=== PATIENT | male | born 1990 | race African-American/Black ===

== ENCOUNTER 2018-05-13 18:59 | Emergency (ER) | payer OTHER ==
[2018-05-13] MEDS ORDERED: CIPROFLOXACIN HCL 500 MG TABLET PO ONE (19:36)
[2018-05-13] MEDS ORDERED: CEPHALEXIN 500 MG CAPSULE PO ONE (19:36)
[2018-05-13] MEDS ORDERED: DIPH/PERTUSS(ACELL)/TETANUS VAC/PF 0.5 ML SYR (>=10YO) IM ONE (19:36)
--- NOTE | 2018-05-13 19:36 | ER Document Report ---
HPI - HPI Patient complains to provider of: Puncture wound to foot Onset: This afternoon Onset/Duration: Sudden Quality of pain: Achy Pain Level: 1 Context: Patient states that he was at work and stepped on a nail that went through his work boot through his sock and into his foot. Patient states that he did initially clean the wound. Patient states that his mother encouraged him to come to have it evaluated. 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 IN LAST 30 DAYS: No - HEENT HEENT: Atraumatic, Normocephalic - NECK Neck: Normal Inspection - RESPIRATORY Respiratory: No Respiratory Distress - CARDIOVASCULAR Pulses: Normal: Dorsalis pedis - MUSCULOSKELETAL/EXTREMETIES Musculoskeletal/Extremeties: MAEW, FROM - NEURO Level of Consciousness: Awake, Alert, Appropriate Motor/Sensory: No Motor Deficit - DERM Integumentary: Warm, Dry Notes: Plantar puncture wound to the right foot Course - Re-evaluation Re-evalutation: 05/13/18 20:04 After foot was soaked in chlorhexidine and water solution, puncture wound opening was explored, no obvious foreign body noted. Patient advised of worsening signs of infection that he should return immediately for. Patient denies any concerns about any bony abnormality to the foot and declines x-ray. - Vital Signs Vital signs: Temp Pulse Resp BP Pulse Ox 98.5 F 91 20 154/87 H 100 05/13/18 19:07 05/13/18 19:07 05/13/18 19:07 05/13/18 19:07 05/13/18 19:07 Discharge - Discharge Clinical Impression: Puncture wound of foot Qualifiers: Encounter type: initial encounter Laterality: right Qualified Code(s): S91.331A - Puncture wound without foreign body, right foot, initial encounter Condition: Stable Disposition: HOME, SELF-CARE Instructions: Cephalexin ([facility]), Ciprofloxacin ([facility]), Puncture Wound ([facility]) Additional Instructions: Return immediately for any new or worsening symptoms Followup with your primary care provider, call tomorrow to make a followup appointment Monitor wound daily for any signs of infection, return immediately for any redness, fever, purulent drainage or any concerning symptoms Prescriptions: Cephalexin Monohydrate [Keflex 500 mg Capsule] 500 mg PO Q6H 5 Days capsule Ciprofloxacin HCl [Cipro 500 mg Tablet] 500 mg PO BID #10 tablet Naproxen [Naprosyn 250 Nmg Tablet] 1 tab PO BID #14 tablet Referrals: [facility] ([facility]) [Provider Group] - Follow up as needed
[2018-05-13] MEDS ORDERED: HYDROCODONE/ACETAMINOPHEN 5-325 MG (6 TAB/ER DISP) PO PRN (20:05)
[2018-05-13 20:36] VITALS: BP 143/86
== END 2018-05-13 20:47 | disposition home or self-care (01) ==
LOC: ER 18:59
DX: S91.331A Puncture wound without foreign body, right foot, initial encounter (principal); W45.0XXA Nail entering through skin, initial encounter; Y99.0 Civilian activity done for income or pay
CPT/HCPCS: 90471; 90715; 99283

== ENCOUNTER 2018-05-28 14:23 | Emergency (ER) | payer SELFPAY ==
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
== END 2018-05-28 15:05 | disposition home or self-care (01) ==
LOC: ER 14:23
DX: R20.0 Anesthesia of skin (principal); Z83.3 Family history of diabetes mellitus
CPT/HCPCS: 82962; 99284

== ENCOUNTER 2019-03-01 22:07 | Emergency (ER) | payer SELFPAY ==
[2019-03-01] MEDS ORDERED: DIPHENHYDRAMINE HCL 50 MG/ML VIAL IM ONE (22:43)
[2019-03-01] MEDS ORDERED: HALOPERIDOL LACTATE INJ 5 MG/1 ML VIAL IM ONE (22:43)
[2019-03-01] MEDS ORDERED: LORAZEPAM INJ 2 MG/1 ML VIAL IM ONE (22:44)
--- NOTE | 2019-03-01 23:02 | ER Document Report ---
Addendum entered and electronically signed by SID FERGUSON MD 03/03/19 10:59: Discharge - Discharge Clinical Impression: Suicidal ideation, Unusual change in behavior, Marijuana use, Altered mental status Condition: Stable Disposition: HOME, SELF-CARE Additional Instructions: You have been evaluated by both medical and behavioral health providers while in the emergency department. You have been cleared from both acute medical and p sychiatric services. It is felt your symptoms and presentation may have been due to lack of sleep and use of Cannabis. Sleep and nutrition are two important factors to both medical and mental health. If symptoms persist after getting adequate sleep and abstinence from Cannabis there may be underlying mental health issues. Altered Mental Status An altered mental status is a change in the normal functioning of the brain. This alteration of function can range from minor decreased brain function with some forgetfulness and confusion to complete loss of consciousness and coma. Th ere are many possible causes of an altered mental status and include brain injuries such as trauma or strokes, problems with oxygen supply to the brain, fever and infections of the brain and/or elsewhere in the body, metabolic abnormalities such as low or high blood sugar, overdoses or excessive medication ingestion, and mental and psychiatric illnesses. Sometimes the altered mental status resolves and a definite cause is not determined. If a cause for your altered mental status was found, it has likely been corrected. Your evaluation has not shown any condition that requires that you be admitted to the hospital. It is believed that you are safe to leave and return to your home. If you have a return of your symptoms, you should return for re-evaluation. Follow-Up Plan: You are recommended to get 6-8 hours of sleep a night (everybody varies in amount of sleep needed each night but this is a typical range), eating at least 3 meals a day with snacking in between and refrain from use of Cannabis. You have been provided the outpatient mental health resource sheet for a list of local agencies if you chose outpatient services, as well as [facility] for crisis/talk therapy/linkage to other supports/services. If your symptoms persist or worsen contact your physician immediately, utilize mobile crisis or return to the emergency department. Forms: Elevated Blood Pressure Referrals: [facility] [Outside] - Follow up as needed Addendum entered and electronically signed by ROMAIN LOGAN LPC 03/03/19 10:46: Discharge - Discharge Clinical Impression: Suicidal ideation, Unusual change in behavior, Marijuana use, Altered mental status Condition: Stable Disposition: HOME, SELF-CARE Additional Instructions: You have been evaluated by both medical and behavioral health providers while in the emergency department. You have been cleared from both acute medical and psychiatric services. It is felt your symptoms and presentation may have been due to lack of sleep and use of Cannabis. Sleep and nutrition are two important factors to both medical and mental health. If symptoms persist after getting adequate sleep and abstinence from Cannabis there may be underlying mental health issues. Altered Mental Status An altered mental status is a change in the normal functioning of the brain. This alteration of function can range from minor decreased brain function with some forgetfulness and confusion to complete loss of consciousness and coma. There are many possible causes of an altered mental status and include brain injuries such as trauma or strokes, problems with oxygen supply to the brain, fever and infections of the brain and/or elsewhere in the body, metabolic abnormalities such as low or high blood sugar, overdoses or excessive medication ingestion, and mental and psychiatric illnesses. Sometimes the altered mental status resolves and a definite cause is not determined. If a cause for your altered mental status was found, it has likely been corrected. Your evaluation has not shown any condition that requires that you be admitted to the hospital. It is believed that you are safe to leave and return to your home. If you have a return of your symptoms, you should return for re-evaluation. Follow-Up Plan: You are recommended to get 6-8 hours of sleep a night (everybody varies in amount of sleep needed each night but this is a typical range), eating at least 3 meals a day with snacking in between and refrain from use of Cannabis. You have been provided the outpatient mental health resource sheet for a list of local agencies if you chose outpatient services, as well as [facility] for crisis/talk therapy/linkage to other supports/services. If your symptoms persist or worsen contact your physician immediately, utilize mobile crisis or return to the emergency department. Forms: Elevated Blood Pressure Referrals: [facility] [Outside] - Follow up as needed Original Note: ED General - General Chief Complaint: Psych Problem Stated Complaint: IVC Time Seen by Provider: 03/01/19 22:40 Mode of Arrival: Ambulatory Information source: Patient, Relative, [facility] Records Cannot obtain history due to: Uncooperative Notes: 28-year-old male with no reported past medical history presents with his brother and mother who are concerned for erratic behavior which began today. Mother states that the patient has been speaking oddly and going off into random ta ngents. Mother reports that the patient has not slept or ate in several days. She states that the patient was running out into the street, drinking water excessively. Patient does admit to suicidal ideation. He does not disclose his plan. He states he has been thinking about hurting himself for approximately 1 month. He has no previous psychiatric history. He denies any drug use, alcohol use, homicidal ideation, visual and auditory hallucinations. Patient has tried several times to run out of the emergency department. He has been uncooperative with allowing blood work to be obtained. TRAVEL OUTSIDE OF THE [place] IN LAST 30 DAYS: No - HPI Onset: This morning Onset/Duration: Gradual, Persistent Quality of pain: No pain Severity: None Pain Level: Denies Associated symptoms: denies: Chest pain, Fever, Headache, Nausea, Vomiting, Shortness of breath Exacerbated by: Denies Relieved by: Denies Similar symptoms previously: No Recently seen / treated by doctor: No - Related Data Allergies/Adverse Reactions: No Known Allergies Allergy (Verified 03/02/19 02:05) Past Medical History - General Information source: Patient, Relative - Social History Smoking Status: Never Smoker Frequency of alcohol use: None Drug Abuse: None Lives with: Family Family History: Reviewed & Not Pertinent Patient has suicidal ideation: Yes Patient has homicidal ideation: No - Medical History Medical History: Negative Renal/ Medical History: Denies: Hx Peritoneal Dialysis Review of Systems - Review of Systems Notes: REVIEW OF SYSTEMS: CONSTITUTIONAL : Denies fever, chills, or sweats. Denies recent illness. Denies weight loss, recent hospitalizations. EENT: Denies visual changes, eye pain. Denies sore throat, oral lesions, difficulty swallowing. CARDIOVASCULAR: Denies chest pain. Denies palpitations. Denies lower extremity edema. RESPIRATORY: Denies cough. Denies shortness of breath, wheezing. GASTROINTESTINAL: Denies abdominal pain or distention. Denies nausea, vomiting, or diarrhea. Denies blood in vomitus, stools, or per rectum. Denies black, tarry stools. Denies constipation. GENITOURINARY: Denies difficulty urinating, painful urination, frequency, blood in urine, testicular pain or penile discharge. MUSCULOSKELETAL: Denies back or neck pain or stiffness. Denies joint pain or swelling. SKIN: Denies rash, lesions or sores. HEMATOLOGIC : Denies easy bruising or bleeding. LYMPHATIC: Denies swollen glands. NEUROLOGICAL: + altered mental status. Denies loss of consciousness. Denies dizziness or lightheadedness. Denies headache. Denies weakness or paralysis. Denies problems difficulty with ambulation, slurred speech. Denies sensory loss, numbness, or tingling. Denies seizures. PSYCHIATRIC: + anxiety or stress. + depression, suicidal ideation Physical Exam - Vital signs Vitals: Temp Pulse Resp BP Pulse Ox 98.2 F 115 H 22 H 133/98 H 99 03/01/19 22:08 03/01/19 22:08 03/01/19 22:08 03/01/19 22:08 03/01/19 22:08 - Notes Notes: PHYSICAL EXAMINATION: GENERAL: Well-appearing, well-nourished and in no acute distress. HEAD: Atraumatic, normocephalic. EYES: Pupils equal round and reactive to light, extraocular movements intact, sclera anicteric, conjunctiva are normal. ENT: Nares patent, oropharynx clear without exudates. Moist mucous membranes. NECK: Normal range of motion, supple without lymphadenopathy LUNGS: Breath sounds clear to auscultation bilaterally and equal. No wheezes ra les or rhonchi. HEART: Regular rate and rhythm without murmurs ABDOMEN: Soft, nontender, nondistended abdomen. No guarding, no rebound. No masses appreciated. Musculoskeletal: Normal range of motion, no pitting or edema. No cyanosis. NEUROLOGICAL: Cranial nerves grossly intact. Slowed speech, normal gait. Normal sensory, motor exams PSYCH: Flat affect uncooperative. Admits to suicidal ideation. SKIN: Warm, Dry, normal turgor, no rashes or lesions noted. Course - Re-evaluation Re-evalutation: 03/02/19 03:08 Laboratory 03/01/19 03/01/19 03/01/19 22:25 22:25 22:45 WBC 11.6 H RBC 5.10 Hgb 14.8 Hct 43.3 MCV 85 MCH 28.9 MCHC 34.0 RDW 13.1 Plt Count 351 Seg Neutrophils % 77.8 Lymphocytes % 13.8 Monocytes % 7.8 Eosinophils % 0.1 Basophils % 0.5 Absolute Neutrophils 9.0 H Absolute Lymphocytes 1.6 Absolute Monocytes 0.9 Absolute Eosinophils 0.0 Absolute Basophils 0.1 Sodium Potassium Chloride Carbon Dioxide Anion Gap BUN Creatinine Est GFR ( Amer) Est GFR (Non-Af Amer) Glucose Calcium Total Bilirubin Direct Bilirubin Neonat Total Bilirubin Neonat Direct Bilirubin Neonat Indirect Bili AST ALT Alkaline Phosphatase Total Protein Albumin Urine Color DARK YELLOW Urine Appearance SLIGHTLY-CLOUDY Urine pH 5.0 Ur Specific [place] 1.028 Urine Protein >=500 H Urine Glucose (UA) NEGATIVE Urine Ketones TRACE H Urine Blood NEGATIVE Urine Nitrite NEGATIVE Urine Bilirubin NEGATIVE Urine Urobilinogen NEGATIVE Ur Leukocyte Esterase NEGATIVE Urine WBC (Auto) 8 Urine RBC (Auto) 5 U Hyaline Cast (Auto) 33 Squamous Epi Cells Auto 1 Urine Mucus (Auto) MANY Urine Ascorbic Acid NEGATIVE Salicylates Urine Opiates Screen NEGATIVE Urine Methadone Screen NEGATIVE Acetaminophen Ur Barbiturates Screen NEGATIVE Ur Phencyclidine Scrn NEGATIVE Ur Amphetamines Screen NEGATIVE U Benzodiazepines Scrn NEGATIVE Urine Cocaine Screen NEGATIVE U Marijuana (THC) Screen UNCONFIRMED POSITIVE Serum Alcohol 03/01/19 22:45 WBC RBC Hgb Hct MCV MCH MCHC RDW Plt Count Seg Neutrophils % Lymphocytes % Monocytes % Eosinophils % Basophils % Absolute Neutrophils Absolute Lymphocytes Absolute Monocytes Absolute Eosinophils Absolute Basophils Sodium 140.8 Potassium 4.3 Chloride 102 Carbon Dioxide 23 Anion Gap 16 BUN 14 Creatinine 1.21 Est GFR ( Amer) > 60 Est GFR (Non-Af Amer) > 60 Glucose 161 H Calcium 10.6 H Total Bilirubin 0.5 Direct Bilirubin 0.3 Neonat Total Bilirubin Not Reportable Neonat Direct Bilirubin Not Reportable Neonat Indirect Bili Not Reportable AST 43 ALT 50 Alkaline Phosphatase 63 Total Protein 8.8 H Albumin 5.1 H Urine Color Urine Appearance Urine pH Ur Specific [place] Urine Protein Urine Glucose (UA) Urine Ketones Urine Blood Urine Nitrite Urine Bilirubin Urine Urobilinogen Ur Leukocyte Esterase Urine WBC (Auto) Urine RBC (Auto) U Hyaline Cast (Auto) Squamous Epi Cells Auto Urine Mucus (Auto) Urine Ascorbic Acid Salicylates < 1.0 L Urine Opiates Screen Urine Methadone Screen Acetaminophen < 10 L Ur Barbiturates Screen Ur Phencyclidine Scrn Ur Amphetamines Screen U Benzodiazepines Scrn Urine Cocaine Screen U Marijuana (THC) Screen Serum Alcohol < 10 Temp Pulse Resp BP Pulse Ox 98.2 F 115 H 22 H 133/98 H 99 03/01/19 22:08 03/01/19 22:08 03/01/19 22:08 03/01/19 22:08 03/01/19 22:08 03/02/19 05:34 28-year-old male presented via private vehicle from home with his brother and mother who are concerned for erratic behavior. Vital signs reviewed upon arrival and patient is tachycardic and is mildly hypertensive. Prior to my exam patient has tried to leave the emergency room several times and has been uncooperative with nursing staff. Brother reports that the patient has been speaking oddly, standing in traffic and not acting himself. Patient does admit to suicidal ideation but does not disclose his plan. He denies drug use but urine drug screen is positive for marijuana. The remainder of the patient's labs are unremarkable. IVC petition was initiated and patient remained uncooperative and repeatedly has tried to leave the emergency department. Patient cleared for behavioral health evaluation. - Vital Signs Vital signs: Temp Pulse Resp BP Pulse Ox 98.2 F 115 H 22 H 133/98 H 99 03/01/19 22:08 03/01/19 22:08 03/01/19 22:08 03/01/19 22:08 03/01/19 22:08 - Laboratory Result Diagrams: 03/01/19 22:45 03/01/19 22:45 Laboratory results interpreted by me: 03/01/19 03/01/19 03/01/19 22:25 22:45 22:45 WBC 11.6 H Absolute Neutrophils 9.0 H Glucose 161 H Calcium 10.6 H Total Protein 8.8 H Albumin 5.1 H Urine Protein >=500 H Urine Ketones TRACE H Salicylates < 1.0 L Acetaminophen < 10 L - EKG Interpretation by [facility] EKG shows normal: Sinus rhythm Rate: Normal Rhythm: NSR When compared to previous EKG there are: Previous EKG unavailable Discharge - Discharge Clinical Impression: Suicidal ideation, Unusual change in behavior, Marijuana use Condition: Good Disposition: OTHER Forms: Elevated Blood Pressure
[2019-03-01 23:04] LABS: ABSOLUTE BASOPHILS # (AUTO) 0.1 10^3/uL (0.0-0.2); ABSOLUTE LYMPHOCYTES (AUTO) 1.6 10^3/uL (0.5-4.7); ABSOLUTE MONOCYTES (AUTO) 0.9 10^3/uL (0.1-1.4); BASOPHILS % (AUTO) 0.5 % (0-2); EOSINOPHILS % (AUTO) 0.1 % (0-6); HEMATOCRIT 43.3 % (37.9-51.0); HEMOGLOBIN 14.8 g/dL (13.5-17.0); LYMPHOCYTES % (AUTO) 13.8 % (13-45); MEAN CORPUSCULAR HEMOGLOBIN 28.9 pg (27.0-33.4); MEAN CORPUSCULAR VOLUME 85 fl (80-97); MONOCYTES % (AUTO) 7.8 % (3-13); PLATELET COUNT 351 10^3/uL (150-450); RED CELL DISTRIBUTION WIDTH 13.1 % (11.5-14.0); SEGMENTED NEUTROPHILS % (AUTO) 77.8 % (42-78); TOTAL CELLS COUNTED % (AUTO) 100 %; WHITE BLOOD COUNT 11.6 10^3/uL (4.0-10.5)
[2019-03-01 23:23] LABS: ACETAMINOPHEN < 10 ug/mL (10-30); ALANINE AMINOTRANSFERASE 50 U/L (21-72); ALBUMIN 5.1 g/dL (3.5-5.0); ALCOHOL < 10 mg/dL (NONE DETECTED); ALKALINE PHOSPHATASE 63 U/L (38-126); ANION GAP 16 (5-19); ASPARTATE AMINO TRANSFERASE 43 U/L (17-59); BILIRUBIN,DIRECT 0.3 mg/dL (0.0-0.4); BILIRUBIN,TOTAL 0.5 mg/dL (0.2-1.3); BLOOD UREA NITROGEN 14 mg/dL (7-20); CALCIUM 10.6 mg/dL (8.4-10.2); CARBON DIOXIDE 23 mmol/L (22-30); CHLORIDE 102 mmol/L (98-107); GLUCOSE 161 mg/dL (75-110); POTASSIUM 4.3 mmol/L (3.6-5.0); SALICYLATE < 1.0 mg/dL (2.0-20.0); TOTAL PROTEIN 8.8 g/dL (6.3-8.2)
[2019-03-01 23:46] LABS: APPEARANCE,URINE SLIGHTLY-CLOUDY; BILIRUBIN,URINE NEGATIVE (NEGATIVE); COLOR,URINE DARK YELLOW; GLUCOSE, URINE NEGATIVE (NEGATIVE); KETONES,URINE TRACE mg/dL (NEGATIVE); LEUKOCYTE ESTERASE,URINE NEGATIVE (NEGATIVE); NITRITE,URINE NEGATIVE (NEGATIVE); PROTEIN,URINE >=500 mg/dL (NEGATIVE); URINE SPECIFIC GRAVITY 1.028; UROBILINOGEN,URINE NEGATIVE mg/dL (<2.0)
[2019-03-01 23:54] LABS: URINE AMPHETAMINES SCREEN NEGATIVE; URINE BARBITURATES SCREEN NEGATIVE; URINE BENZODIAZEPINES SCREEN NEGATIVE; URINE COCAINE SCREEN NEGATIVE; URINE MARIJUANA (THC) SCREEN UNCONFIRMED POSITIVE; URINE METHADONE SCREEN NEGATIVE; URINE PHENCYCLIDINE SCREEN NEGATIVE
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
--- NOTE | 2019-03-02 10:32 | EKG REPORT ---
SEVERITY:- BORDERLINE ECG - SINUS RHYTHM BORDERLINE T WAVE ABNORMALITIES [facility] : Confirmed by: Melvina Denny 02-Mar-2019 10:32:13
[2019-03-02] MEDS ORDERED: HALOPERIDOL 5 MG TABLET PO ONE (10:40)
[2019-03-03 11:09] VITALS: BP 143/80
--- NOTE | 2019-03-08 15:39 | PSYCHOLOGICAL NOTE ---
Psych Note - Psych Note Date seen by psych provider: 03/02/19 Time seen by psych provider: 07:43 - Chart review at 0743. Evaluation from 0828- 0832. Interaction with patient and mother. Interaction with patient and brother. Psych Note: Presenting Problem: Abnormal/Bizarre Behavior
== END 2019-03-03 11:08 | disposition home or self-care (01) ==
LOC: ER 22:07
DX: R45.851 Suicidal ideations (principal); R41.82 Altered mental status, unspecified; F32.9 Major depressive disorder, single episode, unspecified; I10 Essential (primary) hypertension; R00.0 Tachycardia, unspecified
CPT/HCPCS: 93005; 99284; 96372; 36415; 80307 ×4; 85025; 80053; 81001; 93010; J1200; J1630; J2060

== ENCOUNTER 2019-03-07 12:48 | Emergency (ER) | payer SELFPAY ==
--- NOTE | 2019-03-07 13:56 | ER Document Report ---
ED Medical Screen (RME) - General Chief Complaint: Psych Problem Stated Complaint: PSYCH ISSUE Time Seen by Provider: 03/07/19 13:24 Mode of Arrival: Ambulatory Information source: Patient Notes: HPI: 28-year-old male with a history of bizarre behavior was seen and evaluated here about a week ago for similar and had a work-up and was evaluated by psych and given Haldol and house and discharged home and was supposed to follow-up with psych however has not. He is accompanied by his brother who states he is continued to have bizarre behavior. He is not discharged on any medications. The brother states that prior to the patient's last visit here he was in his usual state of health and had no prior psych history and this is completely new and different for him. He states his brother is seeing and hearing things and making up a fantasy environment that does not exist. There is no prior family history of psych disorders. The brother has started using THC pens and smoking marijuana. He is delusional per the brother gives most of the history as history is limited secondary to patient's baseline psychiatric status. The patient states he is here to see his daughter that is upstairs and was born in February. Per the brother at bedside patient does not have a daughter. He denies S I/HI, visual/auditory hallucinations, he does feel safe at home. no other forms of intoxication. no fall or trauma. ROS neg to include 10 systems, unless mentioned in the hpi. PE:>>>> PHYSICAL_EXAM: heart: rrr lungs: ctab MDM: I have ordered labs and initial work-up and patient will be transferred to the main ER for further work-up. I have greeted and performed a rapid initial assessment of this patient. A comprehensive ED assessment and evaluation of the patient, analysis of test results and completion of medical decision making process will be conducted by an additional ED providers. Documentation achieved through voice recording which my lead to some occasional accidental typographical errors. Extensive efforts have been made to proof read documentation to make sure these are the least as possible Category Date Time Status EKG Documentation STAT Care 03/07/19 14:05 Active Vital Signs (ED) Q4H Care 03/07/19 14:05 Active Consult Documentation [RC] ALFREDA Cons 03/07/19 14:05 Active Physician [CONS] Stat Cons 03/07/19 14:05 Ordered ACETAMINOPHEN [CHEM] Stat Lab 03/07/19 13:59 Completed ALCOHOL [CHEM] Stat Lab 03/07/19 13:59 Completed CBC WITH DIFF [HEME] Stat Lab 03/07/19 13:59 Completed COMPREHENSIVE METABOLIC PANEL [CHEM] Stat Lab 03/07/19 13:59 Completed SALICYLATE [CHEM] Stat Lab 03/07/19 13:59 Completed URINALYSIS [URIN] Stat Lab 03/07/19 13:59 Completed URINE DRUG SCREEN [CHEM] Stat Lab 03/07/19 13:59 Completed EKG ER ONLY [ER] Stat Oth 03/07/19 14:05 Active Temp Pulse Resp BP Pulse Ox 99.4 F 110 H 20 186/98 H 98 03/07/19 12:53 03/07/19 12:53 03/07/19 12:53 03/07/19 12:53 03/07/19 12:53 TRAVEL OUTSIDE OF THE [place] IN LAST 30 DAYS: No - Related Data Allergies/Adverse Reactions: No Known Allergies Allergy (Verified 03/07/19 12:49) Past Medical History Renal/ Medical History: Denies: Hx Peritoneal Dialysis Physical Exam - Vital signs Vitals: Temp Pulse Resp BP Pulse Ox 99.4 F 110 H 20 186/98 H 98 03/07/19 12:53 03/07/19 12:53 03/07/19 12:53 03/07/19 12:53 03/07/19 12:53 Course - Vital Signs Vital signs: Temp Pulse Resp BP Pulse Ox 99.4 F 110 H 20 186/98 H 98 03/07/19 12:53 03/07/19 12:53 03/07/19 12:53 03/07/19 12:53 03/07/19 12:53 - Laboratory Result Diagrams: 03/07/19 13:59 03/07/19 13:59 Laboratory results interpreted by me: 03/07/19 03/07/19 03/07/19 13:59 13:59 13:59 WBC 10.6 H Glucose 159 H Calcium 10.3 H Urine Ascorbic Acid 40 H Salicylates < 1.0 L Acetaminophen < 10 L
[2019-03-07 14:15] LABS: ABSOLUTE BASOPHILS # (AUTO) 0.1 10^3/uL (0.0-0.2); ABSOLUTE LYMPHOCYTES (AUTO) 1.6 10^3/uL (0.5-4.7); ABSOLUTE MONOCYTES (AUTO) 0.8 10^3/uL (0.1-1.4); ABSOLUTE NEUT (AUTO) 8.1 10^3/uL (1.7-8.2); BASOPHILS % (AUTO) 0.6 % (0-2); EOSINOPHILS % (AUTO) 0.1 % (0-6); HEMATOCRIT 42.3 % (37.9-51.0); HEMOGLOBIN 14.7 g/dL (13.5-17.0); LYMPHOCYTES % (AUTO) 14.9 % (13-45); MEAN CORPUSCULAR HEMOGLOBIN 29.3 pg (27.0-33.4); MEAN CORPUSCULAR HGB CONC 34.6 g/dL (32.0-36.0); MEAN CORPUSCULAR VOLUME 85 fl (80-97); MONOCYTES % (AUTO) 7.9 % (3-13); PLATELET COUNT 320 10^3/uL (150-450); SEGMENTED NEUTROPHILS % (AUTO) 76.5 % (42-78); TOTAL CELLS COUNTED % (AUTO) 100 %; WHITE BLOOD COUNT 10.6 10^3/uL (4.0-10.5)
[2019-03-07 14:21] LABS: APPEARANCE,URINE CLEAR; BILIRUBIN,URINE NEGATIVE (NEGATIVE); COLOR,URINE STRAW; GLUCOSE, URINE NEGATIVE (NEGATIVE); KETONES,URINE NEGATIVE (NEGATIVE); LEUKOCYTE ESTERASE,URINE NEGATIVE (NEGATIVE); NITRITE,URINE NEGATIVE (NEGATIVE); PROTEIN,URINE NEGATIVE (NEGATIVE); URINE SPECIFIC GRAVITY 1.006; UROBILINOGEN,URINE NEGATIVE mg/dL (<2.0)
--- NOTE | 2019-03-07 14:32 | ER Document Report ---
ED General - General Chief Complaint: Psych Problem Stated Complaint: PSYCH ISSUE Time Seen by Provider: 03/07/19 13:24 Mode of Arrival: Ambulatory Information source: Patient Notes: 28-year-old male with no reported past medical history presents for the second time in less than 1 week with his family who is concerned for abnormal behavior, sleep deprivation, confusion. Patient was seen and evaluated by behavioral health last week. He did stay 2 nights and mother reports when he came home he was acting normally. She states that the patient has not had any sleep for over 2 days and is asking odd questions such as what is my last name, where is my (he is not ). Patient denies any suicidal, homicidal ideation. Home-going recommendations on patient's last discharge were follow-up with [facility], get 6 to 8 hours of sleep daily and 3 mg a day. Patient denying suicidal, homicidal ideation. Mother does not think patient has been using marijuana as he has been with his girlfriend consistently. TRAVEL OUTSIDE OF THE [place] IN LAST 30 DAYS: No - HPI Onset: Other Quality of pain: No pain Severity: None Pain Level: Denies Associated symptoms: denies: Chest pain, Fever, Nausea, Vomiting, Shortness of breath, Weakness Exacerbated by: Denies Relieved by: Denies Similar symptoms previously: Yes Recently seen / treated by doctor: Yes - Related Data Allergies/Adverse Reactions: No Known Allergies Allergy (Verified 03/07/19 12:49) Past Medical History - General Information source: Patient - Social History Smoking Status: Never Smoker Chew tobacco use (# tins/day): No Frequency of alcohol use: None Drug Abuse: Marijuana Lives with: Family Family History: Reviewed & Not Pertinent Patient has suicidal ideation: Yes Patient has homicidal ideation: No - Medical History Medical History: Negative Renal/ Medical History: Denies: Hx Peritoneal Dialysis Review of Systems - Review of Systems Notes: REVIEW OF SYSTEMS: CONSTITUTIONAL : Denies fever, chills, or sweats. Denies recent illness. Denies weight loss, recent hospitalizations. EENT: Denies visual changes, eye pain. Denies sore throat, oral lesions, difficulty swallowing. CARDIOVASCULAR: Denies chest pain. Denies palpitations. Denies lower extremity edema. RESPIRATORY: Denies cough. Denies shortness of breath, wheezing. GASTROINTESTINAL: Denies abdominal pain or distention. Denies nausea, vomiting, or diarrhea. Denies blood in vomitus, stools, or per rectum. Denies black, tarry stools. Denies constipation. GENITOURINARY: Denies difficulty urinating, painful urination, frequency, blood in urine, testicular pain or penile discharge. MUSCULOSKELETAL: Denies back or neck pain or stiffness. Denies joint pain or swelling. SKIN: Denies rash, lesions or sores. HEMATOLOGIC : Denies easy bruising or bleeding. LYMPHATIC: Denies swollen glands. NEUROLOGICAL: + confusion or altered mental status. Denies loss of consciousness. Denies dizziness or lightheadedness. Denies headache. Denies weakness or paralysis. Denies problems difficulty with ambulation, slurred speech. Denies sensory loss, numbness, or tingling. Denies seizures. PSYCHIATRIC: Denies anxiety or stress. Denies depression, suicidal ideation, or homicidal ideation, visual or auditory hallucination Physical Exam - Vital signs Vitals: Temp Pulse Resp BP Pulse Ox 99.4 F 110 H 20 186/98 H 98 03/07/19 12:53 03/07/19 12:53 03/07/19 12:53 03/07/19 12:53 03/07/19 12:53 - Notes Notes: PHYSICAL EXAMINATION: GENERAL: Well-appearing, well-nourished and in no acute distress. HEAD: Atraumatic, normocephalic. EYES: Pupils equal round and reactive to light, extraocular movements intact, sclera anicteric, conjunctiva are normal. ENT: Nares patent, oropharynx clear without exudates. Moist mucous membranes. NECK: Normal range of motion, supple without lymphadenopathy LUNGS: Breath sounds clear to auscultation bilaterally and equal. No wheezes rales or rhonchi. HEART: Regular rate and rhythm without murmurs ABDOMEN: Soft, nontender, nondistended abdomen. No guarding, no rebound. No masses appreciated. Musculoskeletal: Normal range of motion, no pitting or edema. No cyanosis. NEUROLOGICAL: Cranial nerves grossly intact. Normal speech, normal gait. Normal sensory, motor exams PSYCH: Flat affect. Continually asked "where is my ", "what is my last name". Denies suicidal, homicidal ideation SKIN: Warm, Dry, normal turgor, no rashes or lesions noted. Course - Re-evaluation Re-evalutation: 03/07/19 14:39 Temp Pulse Resp BP Pulse Ox 99.4 F 110 H 20 186/98 H 98 03/07/19 12:53 03/07/19 12:53 03/07/19 12:53 03/07/19 12:53 03/07/19 12:53 Laboratory 03/07/19 03/07/19 03/07/19 13:59 13:59 13:59 WBC 10.6 H RBC 5.00 Hgb 14.7 Hct 42.3 MCV 85 MCH 29.3 MCHC 34.6 RDW 13.0 Plt Count 320 Seg Neutrophils % 76.5 Lymphocytes % 14.9 Monocytes % 7.9 Eosinophils % 0.1 Basophils % 0.6 Absolute Neutrophils 8.1 Absolute Lymphocytes 1.6 Absolute Monocytes 0.8 Absolute Eosinophils 0.0 Absolute Basophils 0.1 Sodium 138.2 Potassium 4.0 Chloride 100 Carbon Dioxide 25 Anion Gap 13 BUN 8 Creatinine 0.85 Est GFR ( Amer) > 60 Est GFR (Non-Af Amer) > 60 Glucose 159 H Calcium 10.3 H Total Bilirubin 0.3 Direct Bilirubin 0.1 Neonat Total Bilirubin Not Reportable Neonat Direct Bilirubin Not Reportable Neonat Indirect Bili Not Reportable AST 37 ALT 38 Alkaline Phosphatase 57 Total Protein 8.2 Albumin 4.8 Urine Color STRAW Urine Appearance CLEAR Urine pH 6.0 Ur Specific [place] 1.006 Urine Protein NEGATIVE Urine Glucose (UA) NEGATIVE Urine Ketones NEGATIVE Urine Blood NEGATIVE Urine Nitrite NEGATIVE Urine Bilirubin NEGATIVE Urine Urobilinogen NEGATIVE Ur Leukocyte Esterase NEGATIVE Urine WBC (Auto) 1 Urine Mucus (Auto) RARE Urine Ascorbic Acid 40 H Salicylates < 1.0 L Urine Opiates Screen Urine Methadone Screen Acetaminophen < 10 L Ur Barbiturates Screen Ur Phencyclidine Scrn Ur Amphetamines Screen U Benzodiazepines Scrn Urine Cocaine Screen U Marijuana (THC) Screen Serum Alcohol < 10 03/07/19 13:59 WBC RBC Hgb Hct MCV MCH MCHC RDW Plt Count Seg Neutrophils % Lymphocytes % Monocytes % Eosinophils % Basophils % Absolute Neutrophils Absolute Lymphocytes Absolute Monocytes Absolute Eosinophils Absolute Basophils Sodium Potassium Chloride Carbon Dioxide Anion Gap BUN Creatinine Est GFR ( Amer) Est GFR (Non-Af Amer) Glucose Calcium Total Bilirubin Direct Bilirubin Neonat Total Bilirubin Neonat Direct Bilirubin Neonat Indirect Bili AST ALT Alkaline Phosphatase Total Protein Albumin Urine Color Urine Appearance Urine pH Ur Specific [place] Urine Protein Urine Glucose (UA) Urine Ketones Urine Blood Urine Nitrite Urine Bilirubin Urine Urobilinogen Ur Leukocyte Esterase Urine WBC (Auto) Urine Mucus (Auto) Urine Ascorbic Acid Salicylates Urine Opiates Screen NEGATIVE Urine Methadone Screen NEGATIVE Acetaminophen Ur Barbiturates Screen NEGATIVE Ur Phencyclidine Scrn NEGATIVE Ur Amphetamines Screen NEGATIVE U Benzodiazepines Scrn NEGATIVE Urine Cocaine Screen NEGATIVE U Marijuana (THC) Screen NEGATIVE Serum Alcohol Temp Pulse Resp BP Pulse Ox 98.3 F 83 12 138/71 H 96 03/07/19 18:39 03/07/19 18:39 03/07/19 18:39 03/07/19 18:39 03/07/19 18:39 28-year-old male presents with his family who is concerned for sleep deprivation, confusion. Vital signs reviewed and patient is tachycardic, hypertensive. Patient is cooperative although seems confused. 03/07/19 20:34 Nursing has reported that the patient has become agitated, uncooperative and walking into other patient's rooms. Patient did receive Benadryl, Haldol, Ativan IM. IVC petition initiated. Behavioral health to see the patient in the morning. Lab work including urine drug screen are unremarkable. - Vital Signs Vital signs: Temp Pulse Resp BP Pulse Ox 98.3 F 83 12 138/71 H 96 03/07/19 18:39 03/07/19 18:39 03/07/19 18:39 03/07/19 18:39 03/07/19 18:39 - Laboratory Result Diagrams: 03/07/19 13:59 03/07/19 13:59 Laboratory results interpreted by me: 03/07/19 03/07/19 03/07/19 13:59 13:59 13:59 WBC 10.6 H Glucose 159 H Calcium 10.3 H Urine Ascorbic Acid 40 H Salicylates < 1.0 L Acetaminophen < 10 L Discharge - Discharge Clinical Impression: Unusual change in behavior Altered mental status Qualifiers: Altered mental status type: unspecified Qualified Code(s): R41.82 - Altered mental status, unspecified Condition: Good Disposition: OTHER Forms: Elevated Blood Pressure
[2019-03-07 14:34] LABS: ALBUMIN 4.8 g/dL (3.5-5.0); ALKALINE PHOSPHATASE 57 U/L (38-126); ANION GAP 13 (5-19); ASPARTATE AMINO TRANSFERASE 37 U/L (17-59); BILIRUBIN,DIRECT 0.1 mg/dL (0.0-0.4); BILIRUBIN,TOTAL 0.3 mg/dL (0.2-1.3); BLOOD UREA NITROGEN 8 mg/dL (7-20); CALCIUM 10.3 mg/dL (8.4-10.2); CARBON DIOXIDE 25 mmol/L (22-30); CHLORIDE 100 mmol/L (98-107); GLUCOSE 159 mg/dL (75-110); TOTAL PROTEIN 8.2 g/dL (6.3-8.2)
[2019-03-07 14:35] LABS: ACETAMINOPHEN < 10 ug/mL (10-30); ALCOHOL < 10 mg/dL (NONE DETECTED); SALICYLATE < 1.0 mg/dL (2.0-20.0); URINE BARBITURATES SCREEN NEGATIVE; URINE BENZODIAZEPINES SCREEN NEGATIVE; URINE COCAINE SCREEN NEGATIVE; URINE MARIJUANA (THC) SCREEN NEGATIVE; URINE METHADONE SCREEN NEGATIVE
[2019-03-07 14:37] LABS: URINE AMPHETAMINES SCREEN NEGATIVE
[2019-03-07 14:40] LABS: URINE PHENCYCLIDINE SCREEN NEGATIVE
[2019-03-07] MEDS ORDERED: HALOPERIDOL LACTATE INJ 5 MG/1 ML VIAL ONE (16:22)
[2019-03-07] MEDS ORDERED: HALOPERIDOL LACTATE INJ 5 MG/1 ML VIAL IM ONE (16:23)
[2019-03-07] MEDS ORDERED: LORAZEPAM INJ 2 MG/1 ML VIAL IM ONE (16:52)
[2019-03-07] MEDS ORDERED: DIPHENHYDRAMINE HCL 50 MG/ML VIAL IM ONE (16:53)
--- NOTE | 2019-03-08 00:09 | EKG REPORT ---
SEVERITY:- NORMAL ECG - SINUS RHYTHM : Confirmed by: Tyra Grier MD 08-Mar-2019 00:08:51
--- NOTE | 2019-03-08 13:47 | ER Document Report ---
Doctor's Note Notes: 03/08/19 13:56 Patient states he is feeling much better, he is now able to answer all of my questions as far as person place and time. Brother is at the bedside and is concerned because when he asks the patient about any children the patient tells him what his daughter's name is. However after further questioning the patient states that he does not actually have a daughter, he is hoping to have a daughter and he knows that one day he is going to have a daughter. GENERAL: Alert, interacts well. No acute distress. HEAD: Normocephalic, atraumatic EYES: Pupils equal, round and reactive to light, extraocular movements intact. ENT: Oral mucosa moist, tongue midline. NECK: Full range of motion, supple, trachea midline. LUNGS: no respiratory distress. clear to auscultation bilaterally HEart-Regular rate and rhythm no murmurs gallops or rubs EXTREMITIES: Moves all 4 extremities spontaneously, no edema. No cyanosis. NEUROLOGICAL: Alert and oriented x3, normal speech. PSYCH: Normal mood, normal affect. SKIN: Warm, Dry, normal turgor, no rashes or lesions noted. Last night patient was quite agitated, had to be medicated and placed in restraints. Patient will be started on Haldol and Cogentin. We will continue to observe and possibly seek placement
[2019-03-08] MEDS: BENZTROPINE MESYLATE 1 MG TABLET PO SCH (14:52)
[2019-03-08] MEDS: HALOPERIDOL 5 MG TABLET PO SCH ×2 (14:52→20:12)
[2019-03-09] MEDS: HALOPERIDOL 5 MG TABLET PO SCH (09:41)
[2019-03-09] MEDS: BENZTROPINE MESYLATE 1 MG TABLET PO SCH (09:41)
--- NOTE | 2019-03-09 10:18 | ER Document Report ---
Doctor's Note Notes: 03/09/19 10:17 I have evaluated this pt. this am and he has no c/o. He feels all of his needs are being met and his physical exam is normal. He is awaiting placement per mental health.
[2019-03-09 17:21] VITALS: BP 153/95
== END 2019-03-09 17:30 | disposition other institution (70) ==
LOC: ER 12:48
DX: R41.82 Altered mental status, unspecified (principal); F91.9 Conduct disorder, unspecified; F12.10 Cannabis abuse, uncomplicated
CPT/HCPCS: 93005; 99285; 36415; 80307 ×4; 85025; 80053; 81001; 93010; J1200; J2060; J1630

== ENCOUNTER 2019-04-17 16:30 | Emergency (ER) | payer BC ==
[2019-04-17] MEDS ORDERED: LIDOCAINE 2% VISCOUS SOLN 20 ML UDCUP PO ONE (17:14)
[2019-04-17] MEDS ORDERED: METOCLOPRAMIDE HCL ORAL SOLN 10 MG/10 ML UDCUP PO ONE (17:14)
[2019-04-17] MEDS ORDERED: MAG HYDROX/AL HYDROX/SIMETH SUSP 30 ML UDCUP PO ONE (17:14)
--- NOTE | 2019-04-17 17:22 | ER Document Report ---
HPI - HPI Patient complains to provider of: CONGESTION Time Seen by Provider: 04/17/19 17:03 Onset: Other - A FEW DAYS Onset/Duration: Sudden Quality of pain: Pressure Severity: Mild Pain Level: 1 Context: This 28-year-old male presents to the emergency department with a funny feeling him center of his chest. He reports feels like pressure but he is having a hard time describing. He reports it started couple days ago after he had some tomato-based product to eat. He denies all other symptoms such as fever vomiting diarrhea. Denies nausea. Denies clammy sweaty. Denies pain radiating down any arm. Patient denies history of cardiac disease. Denies trauma. Patient reports he does not smoke or drink or do drugs. Denies drinking red bulls or energy drinks. Patient denies cough. Associated Symptoms: None Exacerbated by: Denies Relieved by: Denies Similar symptoms previously: No Recently seen / treated by doctor: No - CONSTITUTIONAL Constitutional: DENIES: Fever, Chills - CARDIOVASCULAR Cardiovascular: REPORTS: Chest pain - pressure not pain Past Medical History - General Information source: Patient - Social History Smoking Status: Unknown if Ever Smoked Cigarette use (# per day): No Frequency of alcohol use: None Drug Abuse: Marijuana Occupation: [employer] Lives with: Family Family History: Reviewed & Not Pertinent, Hyperlipidemia Patient has suicidal ideation: No Patient has homicidal ideation: No - Medical History Medical History: Negative Renal/ Medical History: Denies: Hx Peritoneal Dialysis Surgical Hx: Negative Vertical Provider Document - CONSTITUTIONAL Agree With Documented VS: Yes Exam Limitations: No Limitations General Appearance: WD/WN, No Apparent Distress - INFECTION CONTROL TRAVEL OUTSIDE OF THE [place] IN LAST 30 DAYS: No - HEENT HEENT: Atraumatic, Normal ENT Exam, Normocephalic. negative: Conjuctival Injection, Pharyngeal Erythema, Tympanic Membrane Red - NECK Neck: Normal Inspection, Supple. negative: Lymphadenopathy-Left, Lymphadenopathy-Right - RESPIRATORY Respiratory: Breath Sounds Normal, No Respiratory Distress, Chest Non-Tender - CARDIOVASCULAR Cardiovascular: Regular Rate, Regular Rhythm - GI/ABDOMEN Gastrointestinal: Abdomen Soft, Abdomen Non-Tender - BACK Back: Normal Inspection - MUSCULOSKELETAL/EXTREMETIES Musculoskeletal/Extremeties: MAEW, FROM - NEURO Level of Consciousness: Awake, Alert, Appropriate Motor/Sensory: No Motor Deficit - DERM Integumentary: Warm, Dry, No Rash Course - Re-evaluation Re-evalutation: 04/17/19 17:20 This 28-year-old male presents with complaints of his chest feeling funny. After eating tomato-based product. Reports last for last couple days. Has not treated it with anything. Patient denies past medical history. Reports his family has a history of diabetes. He denies cardiac disease. He denies drug use. Denies history of cocaine abuse ENERGY drinks. Patient will be given a GI cocktail and an EKG done. 04/17/19 18:05 Patient reports a GI cocktail really did not help. He looks nontoxic no distress respiratory rate even unlabored. He was instructed to follow-up with the primary care provider for full exam. No ST elevation no T wave inversion. Patient discharged home Dictation of this chart was performed using voice recognition software; therefore, there may be some unintended grammatical errors. 04/17/19 18:56 - EKG Interpretation by Me Rate: Normal Rhythm: NSR When compared to previous EKG there are: No significant change Additional EKG results interpreted by me: 04/17/19 18:[address] elevation no T wave inversion Discharge - Discharge Clinical Impression: Chest congestion Condition: Stable Disposition: HOME, SELF-CARE Additional Instructions: *You have been evaluated for chest congestion *Avoid acidy foods *Follow up with a primary care provider within one week *Return to ED for increasing fever, cough, worsening condition, changes, needs Monitor your blood pressure. Your blood pressure was elevated today. This may be because you were anxious, in pain or because you need medication. It is important to follow up with your primary care provider for full evaluation. Forms: Elevated Blood Pressure
[2019-04-17 18:22] VITALS: BP 125/83
--- NOTE | 2019-04-18 08:44 | EKG REPORT ---
SEVERITY:- NORMAL ECG - SINUS RHYTHM : Confirmed by: Tyra Grier MD 18-Apr-2019 08:44:13
== END 2019-04-17 18:46 | disposition home or self-care (01) ==
LOC: ER 16:30
DX: R09.89 Other specified symptoms and signs involving the circulatory and respiratory systems (principal); R07.9 Chest pain, unspecified
CPT/HCPCS: 93005; 99283; 93010; J3490

== ENCOUNTER → 2019-05-15 | Outpatient (CLI) | payer BC ==
[2019-05-15 12:06] LABS: ABSOLUTE EOSINOPHILS # (AUTO) 0.1 10^3/uL (0.0-0.6); ABSOLUTE LYMPHOCYTES (AUTO) 1.6 10^3/uL (0.5-4.7); ABSOLUTE MONOCYTES (AUTO) 0.6 10^3/uL (0.1-1.4); ABSOLUTE NEUT (AUTO) 5.6 10^3/uL (1.7-8.2); BASOPHILS % (AUTO) 0.4 % (0-2); EOSINOPHILS % (AUTO) 0.7 % (0-6); HEMATOCRIT 44.4 % (37.9-51.0); HEMOGLOBIN 15.1 g/dL (13.5-17.0); LYMPHOCYTES % (AUTO) 20.7 % (13-45); MEAN CORPUSCULAR VOLUME 85 fl (80-97); MONOCYTES % (AUTO) 7.6 % (3-13); PLATELET COUNT 258 10^3/uL (150-450); RED BLOOD COUNT 5.21 10^6/uL (4.35-5.55); SEGMENTED NEUTROPHILS % (AUTO) 70.6 % (42-78); TOTAL CELLS COUNTED % (AUTO) 100 %; WHITE BLOOD COUNT 7.9 10^3/uL (4.0-10.5)
[2019-05-15 12:34] LABS: ALBUMIN 4.8 g/dL (3.5-5.0); ALKALINE PHOSPHATASE 55 U/L (38-126); ANION GAP 10 (5-19); ASPARTATE AMINO TRANSFERASE 24 U/L (17-59); BILIRUBIN,DIRECT 0.1 mg/dL (0.0-0.4); BILIRUBIN,TOTAL 0.3 mg/dL (0.2-1.3); BLOOD UREA NITROGEN 16 mg/dL (7-20); CALCIUM 10.2 mg/dL (8.4-10.2); CARBON DIOXIDE 30 mmol/L (22-30); CHLORIDE 99 mmol/L (98-107); GLUCOSE 102 mg/dL (75-110); POTASSIUM 5.1 mmol/L (3.6-5.0); TOTAL PROTEIN 8.4 g/dL (6.3-8.2)
== END ==
LOC: OD 11:17
PROVIDERS: ATTEND Internal Medicine
DX: I10 Essential (primary) hypertension (principal); E66.01 Morbid (severe) obesity due to excess calories
CPT/HCPCS: 36415; 80053; 83036; 84244; 85025

== ENCOUNTER → 2019-08-01 | Outpatient (CLI) | payer BC ==
--- NOTE | 2019-08-01 10:11 | RADIOLOGY REPORT (SQ) ---
EXAM DESCRIPTION: U/S ABDOMEN LIMITED W/O DOP COMPLETED DATE/TIME: 08/01/2019 8:19 am REASON FOR STUDY: BLOATING/ABDOMINAL PAIN, EPIGASTRIC R14.0 ABDOMINAL DISTENSION (GASEOUS) R10.13 EPIGASTRIC PAIN COMPARISON: None. TECHNIQUE: Dynamic and static grayscale images acquired of the abdomen and recorded on PACS. Additio nal selected color Doppler and spectral images recorded. LIMITATIONS: None. FINDINGS: PANCREAS: Unable to visualize the pancreas. LIVER: The echotexture of the hepatic parenchyma is increased compared to that of the adjacent renal cortex. LIVER VASCULATURE: Normal hepatopetal flow within the portal veins. GALLBLADDER: The gallbladder wall measures 1.9 mm in diameter. There is no cholelithiasis, sludge or pericholecystic fluid. ULTRASOUND-DETECTED MCBRIDE'S SIGN: Negative. INTRAHEPATIC DUCTS AND COMMON DUCT: The common bile duct measures 3.1 mm in diameter. The intrahepat ic bile ducts are normal in caliber. AORTA: No aneurysm. RIGHT KIDNEY: The right kidney measures 10.8 cm in length. There is no hydronephrosis. PERITONEAL AND RIGHT PLEURAL SPACE: No ascites or effusions. OTHER: No other findings. IMPRESSION: 1. Increased echotexture of hepatic parenchyma favored to represent hepatic steatosis. 2. Normal appearance of the gallbladder and bile ducts. TECHNICAL DOCUMENTATION: JOB ID: [id number]- All Rights Reserved Reading location - IP/workstation name: [email or web address]
== END ==
LOC: RAD 07:44
PROVIDERS: ATTEND Internal Medicine Gastroenterology
DX: R14.0 Abdominal distension (gaseous) (principal); R10.13 Epigastric pain
CPT/HCPCS: 76705